=== PATIENT | female | born 1935 | race Caucasian/White ===

== ENCOUNTER 2023-01-24 17:33 | Emergency (ER) | payer OTHER ==
[~2023-01-24] VITALS: Ht 149.9 cm; Wt 57.2 kg
--- NOTE | 2023-01-24 17:42 | NUR ---
[id number], tripped and fall c/o left face and L wrist and knee abrasion. pt denies LOC. breathing even and unlabored. pt connected to monitor, vital signs within normal limits. awaiting md for eval
--- NOTE | 2023-01-24 17:43 | NUR ---
at bedside for eval
[2023-01-24] MEDS ORDERED: ACETAMINOPHEN 325 MG TABLET ONE (17:49)
[2023-01-24] MEDS ORDERED: ACETAMINOPHEN 325 MG TABLET PO ONE (18:00)
--- NOTE | 2023-01-24 18:05 | NUR ---
pt taken to ct via [facility]
--- NOTE | 2023-01-24 18:22 | NUR ---
pt returned from ct via [facility]
[2023-01-24] MEDS ORDERED: TYL2T PO (19:25)
--- NOTE | 2023-01-24 19:29 | NUR ---
Patient discharged to home in stable condition. Written and verbal after care instructions given. Patient verbalizes understanding of instruction.
[2023-01-24 19:30] VITALS: BP 162/88
== END 2023-01-24 19:31 | disposition home or self-care (01) ==
LOC: ER 17:37
DX: S00.83XA Contusion of other part of head, initial encounter (principal); S60.812A Abrasion of left wrist, initial encounter; S80.212A Abrasion, left knee, initial encounter; I10 Essential (primary) hypertension; E78.5 Hyperlipidemia, unspecified; Z88.0 Allergy status to penicillin; Z88.2 Allergy status to sulfonamides; W01.0XXA Fall on same level from slipping, tripping and stumbling without subsequent striking against object, initial encounter; Y93.89 Activity, other specified; Y92.481 Parking lot as the place of occurrence of the external cause; Y99.8 Other external cause status
CPT/HCPCS: 70450-TC; 70486-TC; 73110; 73564-TC